=== PATIENT | male | born 1945 | race Caucasian/White ===

== ENCOUNTER 2017-01-07 07:12 | Inpatient (IN) ==
--- NOTE | 2017-01-02 12:36 | EKG Report ---
Stationary ECG Study [facility] Test Date: 01/02/2017 12:36:12 PM Pat Name: LORE GORDON Department: Room: Gender: M Color Maker: GLORIA BAKER [birth year] : 1945 Requested by: Gabriel Brooks Order Number: [id number] Reading MD: KARI ADAN Intervals [place] Rate: 63 P: -11 HI: 224 QRS: 35 QRSD: 125 T: -68 QT: 453 QTc: 460 Interpretive Statements SINUS RHYTHM WITH PROLONGED HI INTERVAL WITH OCCASIONAL VENTRICULAR PREMATURE COMPLEXES MODERATE T-WAVE ABNORMALITY, CONSIDER INFEROLATERAL ISCHEMIA Electronically Signed On 01-02-17 15:21:50 CDT by KARI ADAN [email or web address]
[2017-01-02 13:08] LABS: Basophils # 0.1 10*3/uL (0.0-0.2); Basophils % 1.3 % (0.0-0.8); Eosinophils # 0.5 10*3/uL (0.0-0.87); Eosinophils % 5.4 % (0.00-10.9); Hematocrit 41.3 VOL% (42.0-52.0); Immature Granulocytes % 0.2 %; Immature Granulocytes Absolute 0.02 #; Lymphocytes # 2.4 10*3/uL (1.4-4.0); Lymphocytes % 27.9 % (21.2-54.2); Mean Corpuscular HGB Conc 33.9 GM/DL (32-36); Mean Corpuscular Hemoglobin 31 PG (27-34); Mean Corpuscular Volume 91.6 FL (87-102); Mean Platelet Volume 9.3 FL (9.6-12.0); Monocytes # 0.8 10*3/uL (0.11-0.8); Monocytes % 8.8 % (1.7-12.7); Neutrophils # 4.9 10*3/uL (1.4-7.4); Neutrophils % 56.4 % (38.7-73.9); Platelet Count 257 T/CUMM (130-400); Red Blood Count 4.51 MC/CUMM (3.8-5.5); Red Cell Distribution Width 13.4 % (9.3-17.3); White Blood Count 8.8 T/CUMM (4-12)
[2017-01-02 13:38] LABS: Albumin 4.5 G/DL (3.4-5.0); Bilirubin,Total 0.6 MG/DL (0.2-1.0); Potassium 5.1 MMOL/L (3.5-5.1); Total Protein 7.8 G/DL (6.4-8.3)
[2017-01-07] MEDS ORDERED: LORazepam 1 MG TABLET PO ONE (07:30)
[2017-01-07] MEDS ORDERED: FAMOTIDINE 20 MG TABLET PO ONE (07:31)
--- NOTE | 2017-01-07 07:33 | History and Physical Update ---
History and Physical Update - History and Physical H&P was reviewed, the patient examined and there: are no changes in the patients condition since last H&P was completed.
[2017-01-07] MEDS ORDERED: SODIUM CHLORIDE 0.9% 100 ML IV ONE (09:09)
[2017-01-07] MEDS ORDERED: ceFAZolin 1,000 MG VIAL ONE (09:09)
[2017-01-07] MEDS ORDERED: LACTATED RINGERS 1,000 ML IV SCH (09:30)
[2017-01-07] MEDS ORDERED: LIDOCAINE 2% TOP JELLY 20 ML VIAL INTRAURETH ONE (09:49)
[2017-01-07] MEDS ORDERED: HEPARIN 5,000 UNIT/1 ML VIAL ONE (09:50)
[2017-01-07] MEDS ORDERED: TISSUE ADHESIVE 1 EACH APPLICATOR TOP ONE (09:50)
[2017-01-07] MEDS ORDERED: THROMBIN TOPICAL (RECOMBINANT) 5,000 UNIT VIAL TOP ONE (09:50)
[2017-01-07] MEDS ORDERED: VANCOMYCIN 500 MG VIAL ONE (09:50)
[2017-01-07] MEDS ORDERED: FAMOTIDINE 20 MG TABLET ONE (09:59)
[2017-01-07] MEDS ORDERED: LORazepam 1 MG TABLET ONE (09:59)
--- NOTE | 2017-01-07 10:00 | XRay Report ---
Exam: XR chest 1V portable Date: 01/07/2017 9:45 AM Indication: Respiratory preop evaluation of the chest Comparison: 12/11/2016 Technical: AP portable Findings: Cardiomegaly present with the previous sternotomy. No obvious consolidating infiltrates or effusions with mild interstitial thickening in the perihilar regions and basilar areas. No pneumothorax present. Mediastinum is otherwise intact Impression: 1. Cardiomegaly and previous sternotomy with some mild interstitial thickening in the base regions and scarring without obvious effusions or pneumothorax PROCEDURE INTERPRETED AT [facility] DEPARTMENT OF RADIOLOGY Final Report Signed by: Dr. Stepan Joseph
[2017-01-07] MEDS ORDERED: LIDOCAINE 1% 5 ML VIAL ONE (11:00)
[2017-01-07] MEDS ORDERED: ROCURONIUM 100 MG/10 ML VIAL IV ONE (11:00)
[2017-01-07] MEDS ORDERED: ONDANSETRON 4 MG/2 ML VIAL ONE (11:00)
[2017-01-07] MEDS ORDERED: HYDROmorphone 2 MG/1 ML VIAL IV PRN (12:49)
[2017-01-07] MEDS ORDERED: ONDANSETRON 4 MG/2 ML VIAL IV PRN (12:49)
--- NOTE | 2017-01-07 12:49 | Operative Note ---
Date of procedure: 01/07/17 Procedure: Dr. 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 Blakely is a 71-year-old man with extensive atherosclerosis and has significant claudication in the right leg with evidence of a near total occlusion of the right common femoral artery at its bifurcation I have offered a right femoral endarterectomy have explained the alternatives risks and complications which he understands and accepts Description of the procedure: After the induction of general endotracheal anesthesia the patient's abdomen groins and thighs were prepped with ChloraPrep Ioban and draped in usual fashion I made an initial incision over the right femoral canal and then carried this down to the common femoral artery separately controlled the common femoral profunda and superficial femoral arteries with Vesseloops patient received 5000 units of intravenous heparin notably there was extensive atherosclerosis involving the external iliac and common femoral initially had difficulty controlling the external iliacs due to the amount of atherosclerosis eventually was able to do so with a balloon catheter and vessel loops. The artery was opened longitudinally and as expected there was extensive calcified atherosclerosis there is actually good backbleeding from the profunda and reasonable backbleeding from the superficial femoral I remove diseased intima and media from the common femoral and its bifurcation it feathered out well on the profunda I did moved down into the superficial femoral and used 6-0 Prolene sutures and the loupe magnification to tack the intima I was able to pass a 3-1/2 coronary dilator through this opening without difficulty and noted plaquing along the superficial femoral but it was opened and there was reasonable backbleeding continue the endarterectomy up into the external iliac and was continued atherosclerotic change but good arterial inflow all loose bits of media were removed from the bifurcated area I used a bovine pericardial patch and 5-0 Prolene to close the arteriotomy flow was initiated into the profunda and then into the superficial femoral and noted a bleeding site on the posterior wall at the profunda that was oversewn with 5- 0 Prolene. With completion of the arterial closure I used a Doppler and noted good flow in the superficial and profunda femoris vessels although they did have evidence of some peripheral resistance by Doppler signal. Flow was good hemostasis was reasonable I used Tisseel to further seal around the artery and into the femoral canal I closed the incision with running 3-0 Monocryl and 4 Monocryl subcuticular glue loss estimated 250-300 cc sponge needle and instrument counts correct patient taken to recovery in stable condition Surgeon / Physician: Gabriel Brooks Results - Labs CBC & BMP: 01/02/17 12:55 01/02/17 12:54 Discharge Plan - Discharge Medications No Action Lisinopril 40 mg PO DAILY Clopidogrel [Plavix] 75 mg PO DAILY Aspirin EC Tab 81 mg PO BEDTIME Simvastatin [Zocor] 40 mg PO BEDTIME Metoprolol Tartrate 12.5 mg PO BID Furosemide Tab [Lasix Tab] 1 tablet PO DIRECTED PRN PRN Reason: Edema - Follow Up or Referral - Forms/Instructions
[2017-01-07] MEDS ORDERED: oxyCODONE/ACETAMINOPHEN 5-325 MG TABLET PO PRN ×2 (12:52)
--- NOTE | 2017-01-07 12:56 | Anesthesia Post-Op ---
Anesthesia Post OP - Post Ansesthetic Evaluation Patient seen in post op: Yes Resp: within normal limits CV: within normal limits Mental: within normal limits Temp: within normal limits Eswg-Qs-Khtbvtmiy: within normal limits Nausea and Vomiting: within normal limits Pain: within normal limits
[2017-01-07] MEDS ORDERED: MIDAZOLAM 2 MG/2 ML VIAL ONE (12:59)
[2017-01-07] MEDS ORDERED: SEVOFLURANE 1 UNIT/15 MINUTE INH ONE (12:59)
[2017-01-07] MEDS ORDERED: ACETAMINOPHEN 1,000 MG/100 ML VIAL IV ONE (12:59)
[2017-01-07] MEDS ORDERED: LACTATED RINGERS 1,000 ML IV ONE (13:20)
--- NOTE | 2017-01-07 13:26 | EKG Report ---
Stationary ECG Study [facility] Test Date: 01/07/2017 1:26:01 PM Pat Name: LORE GORDON Department: Room: 609 Gender: M [employer] Operator Helper: BARBARA : 1945 Requested by: Stas Cruz Order Number: [id number] Reading MD: RONNY JARRETT Intervals [place] Rate: 79 P: 80 PA: 209 QRS: -22 QRSD: 125 T: 87 QT: 432 QTc: 467 Interpretive Statements SINUS RHYTHM BORDERLINE LEFT AXIS DEVIATION Electronically Signed On 01-07-17 17:35:54 CDT by RONNY JARRETT [email or web address]
[2017-01-07 14:48] LABS: Hematocrit 33.8 VOL% (42.0-52.0); Hemoglobin 11.3 GM/DL (14.0-18.0)
[2017-01-07 15:12] LABS: Calcium 8.4 MG/DL (8.5-10.1); Osmolality,Calculated 277.4 MOS/KG (273-304); Potassium 4.8 MMOL/L (3.5-5.1)
--- NOTE | 2017-01-07 17:52 | Event Note ---
Mr. Blakely is awake alert doing quite well he is comfortable no hematoma his foot is warm but does not have palpable pulses and actually fairly weak Doppler flow I will allow him to get up this evening to the restroom and try ambulating tomorrow and consider going home tomorrow he is still having as well as his this evening
[2017-01-07] MEDS: ASPIRIN CHEW 81 MG TABLET PO SCH (18:27)
[2017-01-07] MEDS: CLOPIDOGREL 75 MG TABLET PO SCH (18:29)
[2017-01-07] MEDS: DEXTROSE 5% NACL 0.45% 1,000 ML IV SCH (21:21)
[2017-01-08] MEDS: DEXTROSE 5% NACL 0.45% 1,000 ML IV SCH (04:02)
[2017-01-08 05:48] LABS: Hematocrit 30.6 VOL% (42.0-52.0); Hemoglobin 10.5 GM/DL (14.0-18.0)
[2017-01-08 06:26] LABS: Calcium 8.5 MG/DL (8.5-10.1); Osmolality,Calculated 274.8 MOS/KG (273-304); Potassium 4.2 MMOL/L (3.5-5.1)
[2017-01-08 07:39] VITALS: BP 123/61
[2017-01-08] MEDS ORDERED: FONDAPARINUX 2.5 MG/0.5 ML SYRINGE SUBCUT SCH (09:00)
--- NOTE | 2017-01-08 09:22 | Discharge Summary ---
Hospital Course - Hospital Course Hospital Course: Reddy 71-year-old man had a right femoral artery endarterectomy patch graft yesterday for chronic ischemia. He is doing well today has no hematoma no significant swelling his foot is warm I do not palpate pedal pulses he has walked and believes that his walking is better than it was operatively he is ready for discharge and I have instructed him and discussed with him wound care exercise medications and plan recovery and long-term follow-up which he understands and accepts he will be discharged to continue aspirin and Plavix as normal home medications I will give him some Percocet fives for pain I will see him in the office next week Specialty Discharge - Follow Up or Referrals Follow up with: Gabriel Brooks MD [Physician] - Discharge Plan - Discharge Data Disposition: Disch To Home/Self Care Condition at Discharge: Stable Discharge Diet: advance to your usual diet Activity: resume usual activities as tolerated Hygiene: may shower Weight Bearing at Discharge: full weight bearing Driving: no restrictions Contact your physician if you experience:: fever over 101, Redness or swelling, Bleeding - Discharge Medications New Clopidogrel [Plavix] 75 mg PO DAILY tablet Aspirin Chew Tab 81 mg PO DAILY tablet oxyCODONE/ACETAMINOPHEN 5-325 [Percocet 5-325] 1 - 2 tablet PO Q6H PRN #20 tablet PRN Reason: Pain Moderate (4-7) Continue Lisinopril 40 mg PO DAILY Clopidogrel [Plavix] 75 mg PO DAILY Aspirin EC Tab 81 mg PO BEDTIME Simvastatin [Zocor] 40 mg PO BEDTIME Metoprolol Tartrate 12.5 mg PO BID Furosemide Tab [Lasix Tab] 40 mg PO DAILY PRN PRN Reason: Edema - Follow Up or Referral Follow Up: Gabriel Brooks MD [Physician] - 1 Week - Forms/Instructions Exam - Constitutional Vitals: Period Temp Pulse Resp BP Sys/[place]uga Pulse Ox Last 24 Hr 97.0 F-99.5 F 42-81 14-74 68-148/40-85 93-100 Discharge Results Labs on day of discharge: Labs from last 24 hours 01/08/17 01/08/17 01/07/17 05:18 05:18 14:31 Hgb 10.5 L 11.3 L Hct 30.6 L 33.8 L Sodium 137 Potassium 4.2 Chloride 105 Carbon Dioxide 27 Anion Gap 9.2 BUN 15 Creatinine 1.20 GFR Calculation 65 BUN/Creatinine Ratio 12.00 Glucose 112 H Calculated Osmolality 274.8 Calcium 8.5 01/07/17 14:31 Hgb Hct Sodium 140 Potassium 4.8 Chloride 105 Carbon Dioxide 28 Anion Gap 11.8 BUN 11 Creatinine 1.20 GFR Calculation 25 BUN/Creatinine Ratio 9.00 Glucose 100 Calculated Osmolality 277.4 Calcium 8.4 L DS: Provider Date of admission: 01/07/17 07:12 Primary care physician: Ruslan Steward MD Attending physician on admission: Gabriel Brooks MD Discharging clinician: Gabriel Brooks MD
[2017-01-08] MEDS: ASPIRIN CHEW 81 MG TABLET PO SCH (09:31)
[2017-01-08] MEDS: CLOPIDOGREL 75 MG TABLET PO SCH (09:31)
--- NOTE | 2017-01-08 13:28 | Pathology Report from [facility] ---
[facility] ACCESSION # : [id number] PATIENT NAME : Bessie Gordon ORDERING DR : DORITA CASTRO MD CLINICAL HX: PVD - Symptomatic right femoral occlusion POST-OP DX: Same SPECIMEN INFO: Right femoral plaque GROSS DESCRIPTION: The specimen is received in formalin labeled with the patients name and consists of a calcified endarterectomy measuring 1.8 x 0.9 cm in aggregate. Welder Tack sections submitted in one cassette following decalcification. DIAGNOSIS FOR BESSIE GORDON: RIGHT FEMORAL PLAQUE: Calcified atheromatous plaque. COLLECTED DATE: 01/07/2017 [facility] REPORT DATE: 01/08/2017 ELECTRONICALLY SIGNED BY: Trudy Suresh M.D. 01/08/2017 - 9:48:18 [email or web address]
== END 2017-01-08 10:10 | disposition home or self-care (01) | DRG 253 ==
LOC: INTOOBSV 07:12 → N.SDSINP 07:12 → OBSVTOIN 07:12 → N.3E 14:08
PROVIDERS: ADMIT Surgery; ATTEND Surgery